=== PATIENT | female | born 1945 | race Two or more races ===

== ENCOUNTER 2022-04-06 19:58 | Inpatient (IN) ==
[2022-04-06 21:10] LABS: Basophils # (auto) 0.01 K/uL (0-0.2); Basophils % (auto) 0.1 %; Eosinophils # (auto) 0.03 K/uL (0-0.5); Eosinophils % (auto) 0.4 %; Hematocrit (blood only) 42.7 % (37-47); Hemoglobin 14.5 g/dL (12.0-16.0); Immature Granulocytes # (auto) 0.02 K/uL (0.00-0.02); Immature Granulocytes % (auto) 0.2 %; Lymphocytes # (auto) 1.14 K/uL (1.2-3.4); Mean Corpuscular Hemoglobin 29.8 pg (25-34); Mean Corpuscular Volume 87.7 fL (80-100); Mean Platelet Volume 9.4 fL (7.4-10.4); Monocytes % (auto) 9.8 %; Neutrophils # (auto) 6.16 K/uL (1.4-6.5); Neutrophils % (auto) 75.5 %; Platelet Count 187 K/uL (130-400); RDW Coefficient of Variation 13.7 % (11.5-14.5); RDW Standard Deviation 44.2 fL (36.4-46.3); Red Blood Count 4.87 M/uL (4.2-5.4); White Blood Count 8.16 K/uL (4.8-10.8)
[2022-04-06 21:22] LABS: Partial Thromboplastin Time 26.7 Seconds (21.0-31.0); Prothrombin Time 10.8 Seconds (9.0-12.0)
[2022-04-06 21:23] LABS: D Dimer 3010 ug/L FEU (0-500)
[2022-04-06 21:36] LABS: Troponin I High Sensitivity 21.3 pg/ml (0-14)
[2022-04-06 21:45] LABS: Albumin Globulin Ratio 1.2 (0.9-2); Albumin Level 3.8 gm/dl (3.4-5.0); BUN Creatinine Ratio 14.6 (10-20); Bilirubin,Total 0.6 mg/dl (0.2-1.0); Calcium 9.1 mg/dl (8.5-10.1); Creatinine Clr Calc Pharmacy 38.5 ml/min; Est GFR (African American) 46.5 ml/min; Est GFR (Non-African American) 40.1 ml/min; Globulin 3.3 gm/dl (2.5-4.0); Total Protein 7.1 gm/dl (6.0-8.3)
[2022-04-06] MEDS ORDERED: OPTIRAY 320 125ml IV ONE (22:20)
[2022-04-06] MEDS ORDERED: Heparin IV Adult Wt-Based Low-Dose WITH Bolus Protocol STA (23:02)
[2022-04-06] MEDS ORDERED: HEPARIN SOD (PORCINE) 1000 UNIT/ML IV ONE ×3 (23:17→23:45)
--- NOTE | 2022-04-06 23:48 | Emergency Department Note ---
Impression & Plan Pulmonary embolism, bilateral, COVID-19, SOB (shortness of breath), Elevated troponin ED Provider Note INFORMANT: Patient and daughter ED PROVIDER(S): Jhon Jean Baptiste MD CHIEF COMPLAINT: Cough PLAN: Disposition: Admitted Condition: Guarded Outpatient prescription management: none Referral: None MEDICAL DECISION MAKING: Patient presented because of cough and COVID exposure. Her symptoms were concerning for COVID. She was isolated. She also had a long flight from [place]. The patient had unremarkable chest x-ray. Her CBC and chemistry panel did not reveal any significant problems. The patient does have a elevated troponin. ECG was nonischemic. The patient underwent CT imaging of the chest as she had a very positive D-dimer. She has bilateral pulmonary emboli. No evidence of pneumonitis or COVID-pneumonia. COVID testing was positive. IV heparin was ordered. Patient and daughter were informed. [facility]. [facility] was evaluated in the ER and admitted for further management. Triage Nursing notes reviewed and agree them. Vital Signs: reviewed and remarkable for mild hypertension and tachycardia borderline. Differential diagnosis: Reactive airway disease, pneumonia, pneumothorax, COPD, CHF, infections, cardiac ischemia, pulmonary embolism, musculoskeletal, gastrointestinal, as well as other pathologies. Diagnostics interpreted by me: ECG: Twelve-lead ECG revealed sinus tachycardia with premature supraventricular complexes and occasional PVCs at 103 bpm. Left axis deviation. Left ventricular hypertrophy with QRS widening present. Anterolateral Q waves present. No prior for comparison. No ST elevation. Cardiac Monitoring: Cardiac monitoring ordered by me: The patient was placed on continuous cardiac monitoring and observed. It revealed a sinus tachycardia at 101 bpm Imaging studies: Chest x-ray. Findings: A chest x-ray was performed and revealed no pneumothorax, effusion, infiltrate, pulmonary edema, free air under the diaphragm, or wide mediastinum. Impression: No acute disease. CT PE study revealed no evidence of COVID pneumonitis or pneumonia however bilateral pulmonary emboli were noted. HPI: The patient is a 76 year old female who presents to the Emergency Room with complaints of cough. This started 2 days ago and is worsening. The patient also notes the following associated symptoms, headache, malaise and shortness of breath. The patient has taken no medication forrelieving factors. Current pain is rated as 3/10. Patient's daughter was diagnosed with COVID this week. Her granddaughter was diagnosed with COVID last week. Patient just traveled in from [place] on a 5-hour flight little over a week ago. Pt denies LOC, chills, diaphoresis, visual changes, neck pain, chest pain, nausea, vomiting, abdominal pain, back pain, diarrhea, urinary symptoms, numbness, weakness, lymphadenopathy, rash, or other complaints. ROS: See above HPI for pertinent positives & negatives. A total of 10 systems reviewed and were otherwise negative. PAST MEDICAL HISTORY:See Below , diabetes PAST SURGICAL HISTORY:See Below, FAMILY HISTORY:See Below SOCIAL HISTORY:See Below, non-smoker HOME MEDICATIONS:See Below ALLERGIES:See Below VITALS:See Below PHYSICAL EXAMINATION: GENERAL: Awake, alert, mildly ill-appearing, in no distress HENT: Normocephalic, atraumatic. Oropharynx unremarkable. EYES: Normal conjunctiva. Sclera non-icteric. NECK: Inspection normal. Non-tender. Supple. No nuchal rigidity. FROM. No masses. RESPIRATORY: Clear to auscultation. No wheezes. No rales. Mildly increased respiratory effort. CARDIAC: Borderline tachycardic rate. Normal rhythm. No murmurs. No rubs. Extremities warm and well perfused. Pulses equal. No JVD. GI: Soft, non-distended. No tenderness to palpation. No rebound or guarding. No masses. RECTAL: Deferred. MUSCULOSKELETAL: Atraumatic. Chest examination reveals no tenderness. The back is symmetrical on inspection without obvious abnormality. There is no CVA tenderness to palpation. No joint edema. LOWER EXTREMITIES: Calves are equal size bilaterally and non-tender. 1+ edema. No discoloration. NEURO: Normal sensorium. No sensory or motor deficits noted. SKIN: No rash or jaundice noted. CRITICAL CARE: I have personally spent greater than 35 minutes of critical care time in the direct management of this patient. This includes bedside care, interpretation of diagnostic studies, and testing, discussion with consultants, patient, and family members, and other required patient management activities. These minutes are in excess of all separately billable procedures. Jhon Jean Baptiste MD Past Med/Surg History Social History Smoking Status: Never smoker Feels Safe at Home: Yes Allergies Allergies Allergy/AdvReac Type Severity Reaction Status Date / Time codeine Allergy Severe SEVERE Verified 04/06/22 20:44 VOMITING Home Meds Home Medications Medication Instructions Recorded Confirmed acetaminophen 500 mg tablet 1,000 mg PO DIRECTED PRN 04/06/22 04/06/22 (Tylenol Extra Strength) atorvastatin 80 mg tablet 80 mg PO DAILY 04/06/22 04/06/22 carvedilol 25 mg tablet 25 mg PO BID 04/06/22 04/06/22 cholecalciferol (vitamin D3) 25 25 mcg PO DAILY 04/06/22 04/06/22 mcg (1,000 unit) capsule (Vitamin D3) dulaglutide 0.75 mg/0.5 mL 0.75 mg SUBCUT WK 04/06/22 04/06/22 subcutaneous pen injector (Trulicity) gabapentin 100 mg capsule 100 mg PO BID 04/06/22 04/06/22 glipizide 5 mg tablet, extended 5 mg PO DAILY 04/06/22 04/06/22 release 24 hr insulin glargine 100 unit/mL 28 unit SUBCUT QPM 04/06/22 04/06/22 subcutaneous solution (Lantus U-100 Insulin) tizanidine 2 mg tablet 2 mg PO HS PRN 04/06/22 04/06/22 Results & Data (ED) Vital Signs Vital Signs - 24 hr 04/06/22 20:00 04/06/22 20:35 04/06/22 20:36 Temperature 36.8 C Temperature Source Temporal Artery Scan Pulse Rate 126 H Pulse Rate [Apical] 100 H Pulse Rate [Exercises] 136 H Pulse Rate [Resting] 104 H Pulse Rate from SpO2 Sensor Pulse Rhythm [Apical] Respiratory Rate 18 21 Respiratory Rate [Exercises] 24 Respiratory Rate [Resting] 22 Respiratory Effort / Characteristics Non-Labored Spontaneous Respiratory Depth Normal Blood Pressure 202/111 H Blood Pressure [Left Arm] 171/105 H Blood Pressure Mean 141 Blood Pressure Mean [Left Arm] 127 Pulse Oximetry 94 94 Pulse Oximetry [Exercises] 94 Pulse Oximetry [Resting] 92 Oxygen Delivery Method Room Air Room Air Room Air Sepsis Recent Fever Within 48 Hours No Sepsis New/Unexplained Change in Mental Status No Sepsis Action Taken by Nursing No Action Required 04/06/22 21:13 04/06/22 23:00 04/07/22 01:00 Temperature Temperature Source Pulse Rate 91 H Pulse Rate [Apical] 97 H 102 H Pulse Rate [Exercises] Pulse Rate [Resting] Pulse Rate from SpO2 Sensor 92 H Pulse Rhythm [Apical] Regular Respiratory Rate 20 24 26 H Respiratory Rate [Exercises] Respiratory Rate [Resting] Respiratory Effort / Characteristics Non-Labored Spontaneous Respiratory Depth Blood Pressure Blood Pressure [Left Arm] 164/110 H 180/138 H Blood Pressure Mean Blood Pressure Mean [Left Arm] 128 152 Pulse Oximetry 95 93 94 Pulse Oximetry [Exercises] Pulse Oximetry [Resting] Oxygen Delivery Method Room Air Room Air Room Air Sepsis Recent Fever Within 48 Hours Sepsis New/Unexplained Change in Mental Status Sepsis Action Taken by Nursing 04/07/22 01:01 Temperature Temperature Source Pulse Rate 98 H Pulse Rate [Apical] Pulse Rate [Exercises] Pulse Rate [Resting] Pulse Rate from SpO2 Sensor Pulse Rhythm [Apical] Respiratory Rate Respiratory Rate [Exercises] Respiratory Rate [Resting] Respiratory Effort / Characteristics Respiratory Depth Blood Pressure 136/81 Blood Pressure [Left Arm] Blood Pressure Mean Blood Pressure Mean [Left Arm] Pulse Oximetry Pulse Oximetry [Exercises] Pulse Oximetry [Resting] Oxygen Delivery Method Sepsis Recent Fever Within 48 Hours Sepsis New/Unexplained Change in Mental Status Sepsis Action Taken by Nursing Laboratory Data Result diagrams: 04/06/22 20:57 04/06/22 20:57 Lab Results 04/06/22 04/06/22 04/06/22 Range/Units 20:39 20:57 20:57 WBC 8.16 (4.8-10.8) K/uL RBC 4.87 (4.2-5.4) M/uL Hgb 14.5 (12.0-16.0) g/dL Hct 42.7 (37-47) % MCV 87.7 (80-100) fL MCH 29.8 (25-34) pg MCHC 34.0 (32-36) g/dL RDW Std Deviation 44.2 (36.4-46.3) fL RDW Coeff of Rena 13.7 (11.5-14.5) % Plt Count 187 (130-400) K/uL MPV 9.4 (7.4-10.4) fL Immature Gran % (Auto) 0.2 % Neut % (Auto) 75.5 % Lymph % (Auto) 14.0 % [place] % (Auto) 9.8 % Eos % (Auto) 0.4 % Baso % (Auto) 0.1 % Neut # (Auto) 6.16 (1.4-6.5) K/uL Lymph # (Auto) 1.14 L (1.2-3.4) K/uL [place] # (Auto) 0.80 H (0.11-0.59) K/uL Eos # (Auto) 0.03 (0-0.5) K/uL Baso # (Auto) 0.01 (0-0.2) K/uL Immature Gran # (Auto) 0.02 (0.00-0.02) K/uL PT 10.8 (9.0-12.0) Seconds INR 1.0 (0.9-1.1) APTT 26.7 (21.0-31.0) Seconds PTT Ratio 1.0 D-Dimer 3010 H* (0-500) ug/L FEU Sodium (136-145) mmol/L Potassium (3.5-5.1) mmol/L Chloride (98-107) mmol/L Carbon Dioxide (21-32) mmol/L Anion Gap (3-11) BUN (6-23) mg/dl Creatinine (0.6-1.2) mg/dl Est Cr Clr Drug Dosing ml/min Est GFR ( Amer) ml/min Est GFR (Non-Af Amer) ml/min BUN/Creatinine Ratio (10-20) Glucose (70-99(Fasting)) mg/dl Calcium (8.5-10.1) mg/dl Total Bilirubin (0.2-1.0) mg/dl AST (13-39) U/L ALT (7-52) U/L Alkaline Phosphatase (34-104) U/L Troponin I High Sens (0-14) pg/ml Total Protein (6.0-8.3) gm/dl Albumin (3.4-5.0) gm/dl Globulin (2.5-4.0) gm/dl Albumin/Globulin Ratio (0.9-2) SARS-CoV-2, RNA, NAAT POSITIVE A* (NEGATIVE) 04/06/22 Range/Units 20:57 WBC (4.8-10.8) K/uL RBC (4.2-5.4) M/uL Hgb (12.0-16.0) g/dL Hct (37-47) % MCV (80-100) fL MCH (25-34) pg MCHC (32-36) g/dL RDW Std Deviation (36.4-46.3) fL RDW Coeff of Rena (11.5-14.5) % Plt Count (130-400) K/uL MPV (7.4-10.4) fL Immature Gran % (Auto) % Neut % (Auto) % Lymph % (Auto) % [place] % (Auto) % Eos % (Auto) % Baso % (Auto) % Neut # (Auto) (1.4-6.5) K/uL Lymph # (Auto) (1.2-3.4) K/uL [place] # (Auto) (0.11-0.59) K/uL Eos # (Auto) (0-0.5) K/uL Baso # (Auto) (0-0.2) K/uL Immature Gran # (Auto) (0.00-0.02) K/uL PT (9.0-12.0) Seconds INR (0.9-1.1) APTT (21.0-31.0) Seconds PTT Ratio D-Dimer (0-500) ug/L FEU Sodium 137 (136-145) mmol/L Potassium 4.0 (3.5-5.1) mmol/L Chloride 100 (98-107) mmol/L Carbon Dioxide 26 (21-32) mmol/L Anion Gap 11 (3-11) BUN 19 (6-23) mg/dl Creatinine 1.30 H (0.6-1.2) mg/dl Est Cr Clr Drug Dosing 38.5 ml/min Est GFR ( Amer) 46.5 ml/min Est GFR (Non-Af Amer) 40.1 ml/min BUN/Creatinine Ratio 14.6 (10-20) Glucose 176 H (70-99(Fasting)) mg/dl Calcium 9.1 (8.5-10.1) mg/dl Total Bilirubin 0.6 (0.2-1.0) mg/dl AST 16 (13-39) U/L ALT 12 (7-52) U/L Alkaline Phosphatase 57 (34-104) U/L Troponin I High Sens 21.3 H (0-14) pg/ml Total Protein 7.1 (6.0-8.3) gm/dl Albumin 3.8 (3.4-5.0) gm/dl Globulin 3.3 (2.5-4.0) gm/dl Albumin/Globulin Ratio 1.2 (0.9-2) SARS-CoV-2, RNA, NAAT (NEGATIVE) Administered Medications Discontinued Medications Ioversol (Optiray 320 125ml) 120 ml IV ONCE ONE Stop: 04/06/22 22:21 Last Admin: 04/06/22 22:20 Dose: 120 ml Documented by: [id number] Metoprolol Tartrate (Metoprolol Tartrate 1 Mg/Ml Vial) 5 mg IV NOW STA Stop: 04/07/22 00:15 Last Admin: 04/07/22 01:01 Dose: 5 mg Documented by: [id number] Discharge Plan Visit Data Chief Complaint: Cough Stated Complaint: HEADACHE, COUGH, NAUSEA ED Provider: Jhon Jean Baptiste Discharge Problem: Pulmonary embolism, bilateral, COVID-19, SOB (shortness of breath), Elevated troponin Forms Stand Alone Forms: [facility] NAV[facility] Prescriptions Prescriptions: No Action atorvastatin 80 mg Tablet 80 mg PO DAILY RF: 0 glipizide 5 mg Tablet Extended Release 24 Hr 5 mg PO DAILY RF: 0 acetaminophen [Tylenol Extra Strength] 500 mg Tablet 1,000 mg PO DIRECTED PRN (Reason: Pain) RF: 0 carvedilol 25 mg Tablet 25 mg PO BID RF: 0 Lantus U-100 Insulin 100 unit/mL Solution 28 unit SUBCUT QPM RF: 0 tizanidine 2 mg Tablet 2 mg PO HS PRN (Reason: MUSCLE SPASMS) RF: 0 gabapentin 100 mg Capsule 100 mg PO BID RF: 0 cholecalciferol (vitamin D3) [Vitamin D3] 25 mcg (1,000 unit) Capsule 25 mcg PO DAILY RF: 0 Trulicity 0.75 mg/0.5 mL Pen Injector 0.75 mg SUBCUT WK RF: 0 Referrals Referrals: PCP,NO [Primary Care Provider] -
[2022-04-07] MEDS ORDERED: METOPROLOL TARTRATE 1 MG/ML VIAL IV STA (00:14)
[2022-04-07] MEDS ORDERED: REMDESIVIR 200 MG in SODIUM CHLORIDE 0.9% 210 ML IV STA (00:14)
[2022-04-07] MEDS: HEPARIN SODIUM/DEXTROSE 25,000 UNITS/500 ML BAG IV SCH (01:05)
--- NOTE | 2022-04-07 03:22 | History and Physical Report ---
CHIEF COMPLAINT: Shortness of breath. HISTORY OF PRESENT ILLNESS: A 76-year-old female with past medical history significant for diabetes, hyperlipidemia, hypertension, presents with shortness of breath and found to have bilateral PE and COVID. The patient is from [place], she traveled by plane 9 days ago to her daughters place here. As per daughter, the patient's granddaughter just recovered from the COVID before the patient came and after the patient came on last Thursday, daughter developed COVID symptoms and the patient developed yesterday some cough, nausea, not feeling well, but today she was getting short of breath, so they came to the hospital and COVID came back positive and CT chest showed bilateral PE. The patient at home she was 89% on room air. Currently, she is in low 90s on room air, resting comfortably and hemodynamically stable. Has some dry cough, occasionally bringing some phlegm. Denies any chest pain, no fever, no chills. Has some sore throat. No diarrhea or constipation. No blood in stool or black stools. Normal bladder movements. No abdominal pain, has some mild headache. No blurred visions, no earache, has some congestion in the nose. Appetite is okay. ALLERGIES: CODEINE. PAST MEDICAL HISTORY: As mentioned above. PAST SURGICAL HISTORY: Had hysterectomy and cholecystectomy. MEDICATIONS: The patient is on Tylenol Extra Strength 1000 mg p.o. p.r.n., atorvastatin 80 mg p.o. daily, Coreg 25 mg p.o. b.i.d., vitamin D 25 mcg p.o. daily, Trulicity 0.75 mg subcutaneous weekly, gabapentin 100 mg p.o. b.i.d., glipizide 5 mg p.o. daily, Lantus 28 units p.m., tizanidine 2 mg p.o. at bedtime p.r.n. FAMILY HISTORY: Father had heart disease. SOCIAL HISTORY: No smoking, no alcohol, no drug use. REVIEW OF SYSTEMS: As per HPI. Rest of review of systems is negative. PHYSICAL EXAMINATION: GENERAL: The patient is of moderate build, not in acute distress. VITAL SIGNS: Temperature 36.8, pulse 91, respiratory rate 24, blood pressure 164/110, oxygen 93% on room air. HEENT: Pupils equal, round, reactive to light. Oral mucosa moist. NECK: No JVD, no neck masses. CARDIOVASCULAR: S1 and S2 heard. Regular rate and rhythm. No murmur, no gallop. RESPIRATORY SYSTEM: Normal AP diameter. No accessory muscle use. No wheezing, no crackles. ABDOMEN: Soft, bowel sounds present, nontender, no distention. CENTRAL NERVOUS SYSTEM: Cranial nerves II through XII are grossly intact, nonfocal. EXTREMITIES: Left lower extremity slightly swollen. No erythema seen. LABORATORY DATA: WBC is 8.1, hemoglobin 14.5, hematocrit 42.7, platelets 187. PT 10.8, INR 1, APTT 26.7. D-dimer 3110. Sodium 137, potassium 4, chloride 100, bicarbonate 26, BUN 19, creatinine 1.3, serum glucose 176, calcium 9.1. Total bilirubin 0.6, AST 16, ALT 12, alkaline phosphatase 57. Troponin I high sensitivity 21.3. SARS-CoV-2 RNA positive. IMAGING DATA: CT of the chest, multiple pulmonary emboli within the right upper, middle, and lower lobe and subsegmental branches. Additional small emboli within several left upper lobe segmental and subsegmental branches, severe mid thoracic compression fracture deformity of generalized kyphosis, cholecystectomy. Chest x-ray: No acute findings. Ekg Sinus tachycardia with supraventricular complexes with occasional PVCs at a rate of 103, left axis deviation. ASSESSMENT AND PLAN: This is a 76-year-old female who presents with shortness of breath, found to have bilateral PE and COVID positive. 1. Shortness of breath mostly secondary to bilateral pulmonary emboli, currently not requiring oxygen. Started on IV heparin. We will monitor in the med tele. Follow wit PCP for duration of anticoagulation. The patient recently traveled on the flight from [place], could also be the cause of the PE. 2. COVID. The patient is vaccinated and boosted. CTA chest, no obvious lesions. The patient is high risk for progression. Started on remdesivir for 3 days. If the patient developed symptoms can start steroids and complete 5-day course of the remdesivir. Closely monitor. 3. Diabetes. Continue home Lantus. Hold glipizide. Place on insulin sliding scale, monitor the blood sugars, follow HbA1c levels. 4. History of hypertension: Continue Coreg. Will monitor the blood pressure. 5. History of hyperlipidemia: Continue statin. 6. Chronic kidney disease, daughter states she it is stage III, creatinine is 1.3. We will follow the repeat labs. 7. Mild troponin elevation. Mostly demand ischemia. Will follow serial CE. 8. Deep venous thrombosis prophylaxis: On IV heparin. DISPOSITION: Closely monitor in the med tele. PT/OT prior to discharge. Social service to help with discharge planning. Job ID: [id number] TIAGO
[2022-04-07] MEDS ORDERED: ONDANSETRON INJ 2 MG/ML 2 ML VIAL IV PRN (06:18)
[2022-04-07] MEDS ORDERED: NITROGLYCERIN SL 0.4 MG/TAB TAB SL PRN (06:18)
[2022-04-07] MEDS ORDERED: tiZANidine HCL 4 MG TABLET PO PRN (06:18)
[2022-04-07] MEDS ORDERED: SODIUM CHLORIDE 0.45 % 1,000 ML IV SCH (06:18)
[2022-04-07] MEDS ORDERED: ACETAMINOPHEN 325 MG TAB PO PRN (06:18)
[2022-04-07] MEDS ORDERED: CARBOHYDRATES FOR HYPOGLYCEMIA PO PRN (06:30)
[2022-04-07] MEDS ORDERED: DEXTROSE 50% 50 ML SYRINGE IV PRN (06:30)
[2022-04-07] MEDS ORDERED: GLUCOSE 10 TABS/TUBE PO PRN (06:30)
[2022-04-07] MEDS ORDERED: GLUCOSE 40% GEL 15 GM TUBE PO PRN (06:30)
[2022-04-07] MEDS ORDERED: GLUCAGON FOR INJ 1 MG VIAL IM PRN (06:30)
--- NOTE | 2022-04-07 07:15 | XRay Report ---
XR chest 1V portable CLINICAL HISTORY: +covid COMPARISON STUDY: No previous studies for comparison. FINDINGS: There is mild elevation of the right hemidiaphragm. No consolidation is identified to sugge st pneumonia. No pneumothorax or pleural effusion is noted. There is mild cardiomegaly. There is no e vidence for pulmonary edema. IMPRESSION: No acute cardiopulmonary findings. ACT 112: Negative or not required by law. Electronically signed by: Jaun Champion M.D. 04/07/2022 7:14 AM
--- NOTE | 2022-04-07 07:34 | CT Scan Report ---
CT angio chest PE protocol CT DOSE: 466.80 mGy.cm HISTORY: 76 years-old Female with +dimer, SOB, +covid. Acute shortness of breath. Elevated d-dimer level. COVID Positive. TECHNIQUE: Multiple CTA images of the chest were obtained after the intravenous administration of 120 ml Optiray. Coronal and sagittal MIPS were obtained from the axial data set and were submitted for review. All measurements were obtained according to NASCET criteria. A dose lowering technique was u tilized adhering to the principles of ALARA. COMPARISON: Chest radiograph 04/06/2022 FINDINGS: CTA: The heart is mildly enlarged. Trace pericardial effusion. Mural fibrofatty changes of the left ventri cular apex. There is moderate coronary artery calcifications. Atherosclerosis of the thoracic aorta w ithout aneurysm or dissection. There is patency of the imaged great vessels. Numerous pulmonary embol i are noted within right-sided lobar, segmental and subsegmental branches. Smaller filling defects ar e noted within subsegmental left upper and lower lobe pulmonary arterial branches. No saddle pulmonar y embolus or evidence of right heart strain. CT CHEST: Multinodular thyroid with an exophytic partially calcified 1.8 cm nodule extending into the upper med iastinum. No pathologically enlarged lymph nodes are identified. There is no pneumothorax, or overt p ulmonary edema. Trace right pleural effusion. There is mild bilateral bronchial wall thickening with subsegmental bibasilar atelectasis. There are no suspicious pulmonary nodules or masses identified. N o definite pulmonary infarction. 3 mm solid nodule of the right lower lobe on image 134 is indetermin ate, however is of low clinical suspicion. Cholecystectomy. Prior ventral abdominal wall herniorrhaphy. Mild nonspecific distal esophageal wall thickening with tiny hiatal hernia. There are several age-indeterminate thoracic compression deformit ies, most pronounced at the T2, T6 and T8 levels. No retropulsion or paravertebral edema identified. Healed chronic right-sided rib fractures. IMPRESSION: 1. Right greater than left bilateral pulmonary emboli. No evidence of right heart strain or pulmonary infarct. 2. Trace right pleural effusion with mild subsegmental bibasilar atelectasis. 3. Age-indeterminate thoracic compression deformities without retropulsion or paravertebral edema, li zana chronic. ACT 112: Negative or not required by law. The above report was generated using voice recognition software. It may contain grammatical, syntax o r spelling errors. Electronically signed by: Chester Swain M.D. 04/07/2022 7:33 AM
[2022-04-07 07:49] LABS: Basophils # (auto) 0.01 K/uL (0-0.2); Basophils % (auto) 0.1 %; Eosinophils # (auto) 0.01 K/uL (0-0.5); Eosinophils % (auto) 0.1 %; Hematocrit (blood only) 39.4 % (37-47); Hemoglobin 13.3 g/dL (12.0-16.0); Immature Granulocytes # (auto) 0.01 K/uL (0.00-0.02); Immature Granulocytes % (auto) 0.1 %; Lymphocytes # (auto) 1.32 K/uL (1.2-3.4); Lymphocytes % (auto) 19.5 %; Mean Corpuscular Hemoglobin 29.5 pg (25-34); Mean Corpuscular Hgb Conc 33.8 g/dL (32-36); Mean Corpuscular Volume 87.4 fL (80-100); Mean Platelet Volume 9.9 fL (7.4-10.4); Monocytes # (auto) 0.95 K/uL (0.11-0.59); Neutrophils # (auto) 4.47 K/uL (1.4-6.5); Neutrophils % (auto) 66.2 %; Platelet Count 185 K/uL (130-400); RDW Coefficient of Variation 13.7 % (11.5-14.5); RDW Standard Deviation 43.9 fL (36.4-46.3); Red Blood Count 4.51 M/uL (4.2-5.4); White Blood Count 6.77 K/uL (4.8-10.8)
[2022-04-07] MEDS: GABAPENTIN 100 MG CAP PO SCH ×3 (07:57→20:51)
[2022-04-07 08:08] LABS: Partial Thromboplastin Ratio 1.9
[2022-04-07 08:14] LABS: Partial Thromboplastin Time 53.4 Seconds (21.0-31.0)
[2022-04-07 08:20] LABS: BUN Creatinine Ratio 13.5 (10-20); Calcium 8.6 mg/dl (8.5-10.1); Creatinine Clr Calc Pharmacy 39.4 ml/min; Est GFR (African American) 48.3 ml/min; Est GFR (Non-African American) 41.6 ml/min; Magnesium 1.3 mg/dl (1.7-2.4); Potassium 3.8 mmol/L (3.5-5.1)
[2022-04-07] MEDS ORDERED: MAGNESIUM SULFATE / D5W 1 GM/100 ML BAG IV ONE (08:35)
[2022-04-07] MEDS: INSULIN ASPART PER UNIT SC SCH ×4 (08:49→20:41)
[2022-04-07 09:10] LABS: Estimated Average Glucose 186 mg/dl; Hemoglobin A1C 8.1 % (4.5-5.6)
[2022-04-07] MEDS: MAGNESIUM OXIDE 400 MG TAB PO SCH ×2 (09:31→20:52)
[2022-04-07] MEDS: ATORVASTATIN 40 MG TAB PO SCH (09:32)
[2022-04-07] MEDS: CHOLECALCIFEROL 1,000 UNITS 25 MCG TAB PO SCH (09:32)
[2022-04-07] MEDS: carvediloL 25 MG TAB PO SCH ×2 (09:36→20:51)
--- NOTE | 2022-04-07 10:47 | Hospitalist Progress Note ---
Date of Service April 07, 2022 Assessment & Plan (1) Pulmonary embolism, bilateral: (2) COVID-19: (3) SOB (shortness of breath): (4) Elevated troponin: Plan: 76-year-old woman from [place] who is visiting family here, with history of diabetes hypertension who presents with shortness of breath. Being managed for bilateral PE and COVID infection Patient remains on room air. Chest x-ray on presentation did not show any acute findings. CT PE showed right greater than left bilateral pulmonary emboli without evidence of right heart strain or pulmonary infarct, trace right pleural effusion with mild subsegmental bibasilar atelectasis, age-indeterminate thoracic compression deformities without retropulsion or paravertebral edema likely chronic. Was positive for COVID, creatinine was 1.3 on presentation [unknown baseline], hemoglobin A1c is 8.3, potassium this morning is 1.3 Troponin high-sensitivity mildly elevated at 21.3 on presentation EKG showed left axis deviation, sinus tachycardia with PVC, some QRS abnormalities. (No previous EKG to compare) COVID infection Bilateral PE Elevated troponin. Currently on remdesivir. Monitor LFT Patient is on room air. We need to step prior to discharge Continue heparin drip for now Plan to transition to NOAC. Will need anticoagulation for 3 to 6 months. Recheck troponin was mildly elevated on presentation. Serial EKG. If trop is elevated or concerning EKG, will get Echo Creatinine was 1.3 on presentation, got some IV fluids overnight. Creatinine is 1.[address] angio presentation reported trace right pleural effusion. Patient currently has trace pedal edema. Will stop IV fluids. Possible CKD since we do not have any old labs to compare Hypomagnesemic. Replete and monitor Continue insulin per protocol to manage diabetes. A1c is 8.1 Hypertension. Continue home carvedilol. Monitor for now. Admission and Anticipated Discharge Date Admission Date: April 07, 2022 Subjective Patient seen and examined. Reported some vomiting this morning. Nausea currently resolved. Denies any headache, dizziness Reports cough occasionally productive. Denies any chest pain, shortness of breath Denies any abdominal pain, diarrhea, constipation Denies any dysuria, frequency, urgency Denies fevers or chills Physical Exam Constitutional: + well hydrated and + obese; no acute distress Eyes: PERRL, conjunctivae normal, anicteric sclerae ENMT: external ear and nose normal, oropharynx normal Respiratory: normal respiratory effort, lungs clear to auscultation Cardiovascular: Rate/Rhythm: regular rate and regular rhythm S1 S2 Gastrointestinal (Abdomen): normal bowel sounds, soft, nontender, no hepatosplenomegaly Musculoskeletal: Trace pedal edema Neurologic: PERRL, EOMI, accommodation nl, no face palsy, no dysarthria Psychiatric: A+Ox3, euthymic affect Results & Data Results & Data ([facility]) Vital Signs (Past 12 Hours) Vital Signs Temp Pulse Pulse Resp BP BP Pulse Ox 04/07/22 06:42 66 04/07/22 06:22 37.3 C 99 H 16 188/94 H 94 04/07/22 05:30 84 21 163/95 H 94 04/07/22 03:00 173/131 H 93 04/07/22 02:00 116 H 30 H 169/113 H 93 04/07/22 01:01 98 H 136/81 04/07/22 01:00 102 H 26 H 180/138 H 94 04/06/22 23:00 91 H 24 93 Laboratory Results Abnormal lab results 04/06/22 04/06/22 04/06/22 Range/Units 20:39 20:57 20:57 Lymph # (Auto) 1.14 L (1.2-3.4) K/uL [place] # (Auto) 0.80 H (0.11-0.59) K/uL APTT (21.0-31.0) Seconds D-Dimer 3010 H* (0-500) ug/L FEU Sodium (136-145) mmol/L Creatinine (0.6-1.2) mg/dl Glucose (70-99(Fasting)) mg/dl POC Glucose (70-99) mg/dl Hemoglobin A1c (4.5-5.6) % Magnesium (1.7-2.4) mg/dl Troponin I High Sens (0-14) pg/ml SARS-CoV-2, RNA, NAAT POSITIVE A* (NEGATIVE) 04/06/22 04/07/22 04/07/22 Range/Units 20:57 07:22 07:22 Lymph # (Auto) (1.2-3.4) K/uL [place] # (Auto) 0.95 H (0.11-0.59) K/uL APTT 53.4 H* (21.0-31.0) Seconds D-Dimer (0-500) ug/L FEU Sodium (136-145) mmol/L Creatinine 1.30 H (0.6-1.2) mg/dl Glucose 176 H (70-99(Fasting)) mg/dl POC Glucose (70-99) mg/dl Hemoglobin A1c (4.5-5.6) % Magnesium (1.7-2.4) mg/dl Troponin I High Sens 21.3 H (0-14) pg/ml SARS-CoV-2, RNA, NAAT (NEGATIVE) 04/07/22 04/07/22 04/07/22 Range/Units 07:22 07:22 08:01 Lymph # (Auto) (1.2-3.4) K/uL [place] # (Auto) (0.11-0.59) K/uL APTT (21.0-31.0) Seconds D-Dimer (0-500) ug/L FEU Sodium 135 L (136-145) mmol/L Creatinine 1.26 H (0.6-1.2) mg/dl Glucose 211 H (70-99(Fasting)) mg/dl POC Glucose 226 H (70-99) mg/dl Hemoglobin A1c 8.1 H (4.5-5.6) % Magnesium 1.3 L (1.7-2.4) mg/dl Troponin I High Sens (0-14) pg/ml SARS-CoV-2, RNA, NAAT (NEGATIVE)
--- NOTE | 2022-04-07 12:59 | Electrocardiogram Report ---
Test Reason : Blood Pressure : / mmHG Vent. Rate : 103 BPM Atrial Rate : 103 BPM P-R Int : 160 ms QRS Dur : 116 ms QT Int : 352 ms P-R-T Axes : 030 -42 095 degrees QTc Int : 461 ms Poor data quality, interpretation may be adversely affected Sinus tachycardia with Premature supraventricular complexes and with occasional Premature ventricular complexes Left axis deviation Left ventricular hypertrophy with QRS widening and repolarization abnormality Anterolateral infarct , age undetermined Abnormal ECG No previous ECGs available Confirmed by Manny Schafer ([id number]) on 04/07/2022 12:59:36 PM Referred By: REFERRED SELF Confirmed By:Shyam Schafer
[2022-04-07] MEDS: BENZONATATE 100 MG CAPSULE PO PRN ×2 (14:30→21:20)
[2022-04-07] MEDS ORDERED: REMDESIVIR 100 MG in SODIUM CHLORIDE 0.9% 230 ML IV SCH (20:00)
[2022-04-07] MEDS: guaiFENesin 600 MG TABCR PO SCH (20:50)
[2022-04-07] MEDS ORDERED: INSULIN GLARGINE SOLOSTAR 100 UNITS/ML 3 ML PEN SQ SCH (21:00)
[2022-04-07] MEDS ORDERED: COUGH DROP (SUGAR FREE) LOZ 24 LOZ/1 BOX BUCCAL STA (21:03)
[2022-04-08] MEDS ORDERED: ZOLPIDEM TARTRATE 5 MG TAB PO PRN (01:27)
[2022-04-08 07:55] LABS: Hematocrit (blood only) 39.1 % (37-47); Hemoglobin 13.2 g/dL (12.0-16.0); Mean Corpuscular Hemoglobin 29.7 pg (25-34); Mean Corpuscular Hgb Conc 33.8 g/dL (32-36); Mean Corpuscular Volume 88.1 fL (80-100); Mean Platelet Volume 9.6 fL (7.4-10.4); Platelet Count 192 K/uL (130-400); RDW Coefficient of Variation 13.7 % (11.5-14.5); RDW Standard Deviation 44.6 fL (36.4-46.3); Red Blood Count 4.44 M/uL (4.2-5.4); White Blood Count 5.23 K/uL (4.8-10.8)
[2022-04-08 07:57] LABS: Partial Thromboplastin Ratio 1.5; Partial Thromboplastin Time 41.9 Seconds (21.0-31.0)
[2022-04-08 08:20] LABS: Albumin Level 3.4 gm/dl (3.4-5.0); Bilirubin Direct 0.1 mg/dl (0-0.2); Bilirubin,Total 0.5 mg/dl (0.2-1.0); Calcium 8.3 mg/dl (8.5-10.1); Creatinine Clr Calc Pharmacy 36.9 ml/min; Est GFR (African American) 44.4 ml/min; Est GFR (Non-African American) 38.3 ml/min; Magnesium 1.8 mg/dl (1.7-2.4); Phosphorus 3.8 mg/dl (2.5-4.9); Potassium 3.8 mmol/L (3.5-5.1); Total Protein 6.3 gm/dl (6.0-8.3)
[2022-04-08] MEDS: INSULIN ASPART PER UNIT SC SCH ×2 (08:27→12:37)
[2022-04-08] MEDS: HEPARIN SODIUM/DEXTROSE 25,000 UNITS/500 ML BAG IV SCH (08:36)
[2022-04-08 08:49] LABS: Troponin I High Sensitivity 24.3 pg/ml (0-14)
[2022-04-08] MEDS: carvediloL 25 MG TAB PO SCH (09:39)
[2022-04-08] MEDS: ATORVASTATIN 40 MG TAB PO SCH (09:39)
[2022-04-08] MEDS: GABAPENTIN 100 MG CAP PO SCH (09:40)
[2022-04-08] MEDS: guaiFENesin 600 MG TABCR PO SCH (09:40)
[2022-04-08] MEDS: CHOLECALCIFEROL 1,000 UNITS 25 MCG TAB PO SCH (09:40)
--- NOTE | 2022-04-08 09:58 | Electrocardiogram Report ---
Test Reason : Blood Pressure : / mmHG Vent. Rate : 114 BPM Atrial Rate : 114 BPM P-R Int : 248 ms QRS Dur : 128 ms QT Int : 322 ms P-R-T Axes : 006 -38 115 degrees QTc Int : 443 ms Sinus tachycardia with 1st degree A-V block Left axis deviation Left bundle branch block Abnormal ECG Confirmed by Manny Schafer ([id number]) on 04/08/2022 9:57:55 AM Referred By: REFERRED SELF Confirmed By:Shyam Schafer
[2022-04-08] MEDS ORDERED: APIXABAN 5 MG TABLET PO SCH (10:30)
--- NOTE | 2022-04-08 11:02 | Discharge Summary ---
Date of Service April 08, 2022 Admission HPI Per Admitting Provider A 76-year-old female with past medical history significant for diabetes, hyperlipidemia, hypertension, presents with shortness of breath and found to have bilateral PE and COVID. The patient is from [place], she traveled by plane 9 days ago to her daughters place here. As per daughter, the patient's granddaughter just recovered from the COVID before the patient came and after the patient came on last Thursday, daughter developed COVID symptoms and the patient developed yesterday some cough, nausea, not feeling well, but today she was getting short of breath, so they came to the hospital and COVID came back positive and CT chest showed bilateral PE. The patient at home she was 89% on room air. Currently, she is in low 90s on room air, resting comfortably and hemodynamically stable. Has some dry cough, occasionally bringing some phlegm. Denies any chest pain, no fever, no chills. Has some sore throat. No diarrhea or constipation. No blood in stool or black stools. Normal bladder movements. No abdominal pain, has some mild headache. No blurred visions, no earache, has some congestion in the nose. Appetite is okay. Admission Exam Per Admitting Provider GENERAL: The patient is of moderate build, not in acute distress. VITAL SIGNS: Temperature 36.8, pulse 91, respiratory rate 24, blood pressure 164/110, oxygen 93% on room air. HEENT: Pupils equal, round, reactive to light. Oral mucosa moist. NECK: No JVD, no neck masses. CARDIOVASCULAR: S1 and S2 heard. Regular rate and rhythm. No murmur, no gallop. RESPIRATORY SYSTEM: Normal AP diameter. No accessory muscle use. No wheezing, no crackles. ABDOMEN: Soft, bowel sounds present, nontender, no distention. CENTRAL NERVOUS SYSTEM: Cranial nerves II through XII are grossly intact, nonfocal. EXTREMITIES: Left lower extremity slightly swollen. No erythema seen. Principal Diagnosis COVID 19 infection Bilateral pulmonary embolism Chronic Kidney Disease stage 3 Discharge Exam Constitutional + well hydrated and + obese; no acute distress Eyes PERRL, conjunctivae normal, anicteric sclerae ENMT external ear and nose normal, oropharynx normal Respiratory normal respiratory effort, lungs clear to auscultation Cardiovascular Rate/Rhythm: regular rate and regular rhythm S1 S2 Gastrointestinal (Abdomen) normal bowel sounds, soft, nontender, no hepatosplenomegaly Musculoskeletal no cyanosis or clubbing, extremities motor strength 5/5 Neurologic PERRL, EOMI, accommodation nl, no face palsy, no dysarthria Psychiatric A+Ox3, euthymic affect Discharge Data Allergies Allergy/AdvReac Type Severity Reaction Status Date / Time codeine Allergy Severe SEVERE Verified 04/06/22 20:44 VOMITING Consultations 04/06/22 23:41 ED Decision to Admit Stat Ordered Studies 04/06/22 21:45 CT angio chest PE protocol Urgent CTA: The heart is mildly enlarged. Trace pericardial effusion. Mural fibrofatty changes of the left ventricular apex. There is moderate coronary artery calcifications. Atherosclerosis of the thoracic aorta without aneurysm or dissection. There is patency of the imaged great vessels. Numerous pulmonary emboli are noted within right-sided lobar, segmental and subsegmental branches. Smaller filling defects are noted within subsegmental left upper and lower lobe pulmonary arterial branches. No saddle pulmonary embolus or evidence of right heart strain. CT CHEST: Multinodular thyroid with an exophytic partially calcified 1.8 cm nodule extending into the upper mediastinum. No pathologically enlarged lymph nodes are identified. There is no pneumothorax, or overt pulmonary edema. Trace right pleural effusion. There is mild bilateral bronchial wall thickening with subsegmental bibasilar atelectasis. There are no suspicious pulmonary nodules or masses identified. No definite pulmonary infarction. 3 mm solid nodule of the right lower lobe on image 134 is indeterminate, however is of low clinical suspicion. Cholecystectomy. Prior ventral abdominal wall herniorrhaphy. Mild nonspecific distal esophageal wall thickening with tiny hiatal hernia. There are several age-indeterminate thoracic compression deformities, most pronounced at the T2, T6 and T8 levels. No retropulsion or paravertebral edema identified. Healed chronic right-sided rib fractures. IMPRESSION: 1. Right greater than left bilateral pulmonary emboli. No evidence of right heart strain or pulmonary infarct. 2. Trace right pleural effusion with mild subsegmental bibasilar atelectasis. 3. Age-indeterminate thoracic compression deformities without retropulsion or paravertebral edema, likely chronic. Hospital Course (1) Pulmonary embolism, bilateral: (2) COVID-19: (3) SOB (shortness of breath): (4) Elevated troponin: 76-year-old woman from [place] who is visiting family here, with history of diabetes hypertension who presents with shortness of breath. Being managed for bilateral PE and COVID infection Patient remains on room air. Chest x-ray on presentation did not show any acute findings. CT PE showed right greater than left bilateral pulmonary emboli without evidence of right heart strain or pulmonary infarct, trace right pleural effusion with mild subsegmental bibasilar atelectasis, age-indeterminate thoracic compression deformities without retropulsion or paravertebral edema likely chronic. Was positive for COVID, creatinine was 1.3 on presentation [unknown baseline], hemoglobin A1c is 8.3 Troponin high-sensitivity mildly elevated at 21.3pg/ml on presentation ->48->24.3 EKG showed left axis deviation, sinus tachycardia with PVC, some QRS abnormalities. (No previous EKG to compare) COVID infection Bilateral PE Elevated troponin. Received remdesivir while inpatient Was started on heparin drip Patient did not require oxygen throughout her stay. Has been on room air 2 Step did not show any oxygen requirement with activity Heparin was changed to eliquis I educated patient and daughter(on the phone) about eliquis Creatinine was 1.3 on presentation. Cr was 1.26->1.35 Patient reported she has history of chronic kidney disease Patient advised to follow up with PCP and a Nephrologsit. Patient visiting from [place] Patient to continue home antidiabetic and antihypertensive regimen Total Time Total Time Spent Total Time Spent (In Minutes): 50 Total Time Includes: Examination of the Patient, Discharge Planning, Medication Reconciliation and Other Discharge Plan Discharge Items Patient Disposition: Home - Self-Care Reason For Visit: Cough and shortness of breath Discharge Diagnosis: COVID 19 infection Bilateral pulmonary embolism Chronic Kidney Disease stage 3 Activity: Resume your previous activity Non-emergency contact: Primary Care Provider Call non-emergency contact if: you have any medication questions Follow-up/Referrals: PCP,NO [Primary Care Provider] - Diet: Carb Consistent or DM2 and Heart Healthy Addtl Attending Provider Instructions: Mrs Gann You came to the hospital complaining of shortness of breath. You were evaluated and found to have COVID 19 infection and blood clots in your lungs. You were started on blood thinners. Your symptoms improved. You were evaluated and noted not to require oxygen at rest. You are being discharged on apixaban (eliquis). This is a blood thinner. You need to take this as prescribed (10mg twice daily for I week, and from Thursday04/15/22 take 5mg twice daily) You will need 3-6 months of anticoagulation/blood thinner. It is very important that you follow up with your Primary Doctor within 1-2 weeks. Please follow up with your Nephrology for management of your Chronic Kidney Disease Please observe home isolation for next week and use your face mask when not alone. It was a pleasure taking care of you Addtl [employer] Senior Specialist Provider Instructions: Home Isolation COVID-19 Instructions The following information about Home Isolation is from the CDC Website: https://www.cdc.gov/coronavirus/2019-ncov/hcp/ssakpumc-pyrjqsa-isbomr.html Stay home except to get medical care People who are mildly ill with COVID-19 are able to isolate at home during their illness. You should restrict activities outside your home, except for getting medical care. Do not go to work, school, or public areas. Avoid using public transportation, ride-sharing, or taxis. Separate yourself from other people and animals in your home People: As much as possible, you should stay in a specific room and away from other people in your home. Also, you should use a separate bathroom, if available. Animals: You should restrict contact with pets and other animals while you are sick with COVID-19, just like you would around other people. Although there have not been reports of pets or other animals becoming sick with COVID-19, it is still recommended that people sick with COVID-19 limit contact with animals until more information is known about the virus. When possible, have another member of your household care for your animals while you are sick. If you are sick with COVID-19, avoid contact with your pet, including petting, snuggling, being kissed or licked, and sharing food. If you must care for your pet or be around animals while you are sick, wash your hands before and after you interact with pets and wear a face mask. Call ahead before visiting your doctor If you have a medical appointment, call the healthcare provider and tell them that you have or may have COVID-19. This will help the healthcare providers office take steps to keep other people from getting infected or exposed. Wear a face mask You should wear a face mask when you are around other people (e.g., sharing a room or vehicle) or pets and before you enter a healthcare providers office. If you are not able to wear a face mask (for example, because it causes trouble breathing), then people who live with you should not stay in the same room with you, or they should wear a face mask if they enter your room. Cover your coughs and sneezes Cover your mouth and nose with a tissue when you cough or sneeze. Throw used tissues in a lined trash can. Immediately wash your hands with soap and water for at least 20 seconds or, if soap and water are not available, clean your hands with an alcohol-based hand insights strategist that contains at least 60% alcohol. Clean your hands often Wash your hands often with soap and water for at least 20 seconds, especially after blowing your nose, coughing, or sneezing; going to the bathroom; and before eating or preparing food. If soap and water are not readily available, use an alcohol-based hand insights strategist with at least 60% alcohol, covering all surfaces of your hands and rubbing them together until they feel dry. Soap and water are the best option if hands are visibly dirty. Avoid touching your eyes, nose, and mouth with unwashed hands. Avoid sharing personal household items You should not share dishes, drinking glasses, cups, eating utensils, towels, or bedding with other people or pets in your home. After using these items, they should be washed thoroughly with soap and water. Clean all high-touch surfaces everyday High touch surfaces include counters, tabletops, doorknobs, bathroom fixtures, toilets, phones, keyboards, tablets, and bedside tables. Also, clean any surfaces that may have blood, stool, or body fluids on them. Use a household cleaning spray or wipe, according to the label instructions. Labels contain instructions for safe and effective use of the cleaning product including precautions you should take when applying the product, such as wearing gloves and making sure you have good ventilation during use of the product. Monitor your symptoms Seek prompt medical attention if your illness is worsening (e.g., difficulty breathing).Beforeseeking care, call your healthcare provider and tell them that you have, or are being evaluated for, COVID-19. Put on a face mask before you enter the facility. These steps will help the healthcare providers office to keep other people in the office or waiting room from getting infected or exposed. Ask your healthcare provider to call the local or state health department. Persons who are placed under active monitoring or facilitated self- monitoring should follow instructions provided by their local health department or occupational health professionals, as appropriate. When working with your local health department check their available hours. If you have a medical emergency and need to call 911, notify the dispatch personnel that you have, or are being evaluated for COVID-19. If possible, put on a face mask before emergency medical services arrive. Discontinuing home isolation Patients with confirmed COVID-19 should remain under home isolation precautions until the risk of secondary transmission to others is thought to be low. The decision to discontinue home isolation precautions should be made on a [id number] basis, in consultation with healthcare providers and [facility] and [facility] health departments. Pending Studies at Discharge: No Stand-Alone Forms: [facility], Smoking Cessation Medications and DC Order Prescriptions: New Eliquis 5 mg Tablet See Rx Instructions .ROUTE .COMPLEX Qty: 72 RF: 0 benzonatate 100 mg Capsule 100 mg PO TID PRN (Reason: cough) Qty: 30 RF: 0 Continued atorvastatin 80 mg Tablet 80 mg PO DAILY RF: 0 glipizide 5 mg Tablet Extended Release 24 Hr 5 mg PO DAILY RF: 0 acetaminophen [Tylenol Extra Strength] 500 mg Tablet 1,000 mg PO DIRECTED PRN (Reason: Pain) RF: 0 carvedilol 25 mg Tablet 25 mg PO BID RF: 0 Lantus U-100 Insulin 100 unit/mL Solution 28 unit SUBCUT QPM RF: 0 tizanidine 2 mg Tablet 2 mg PO HS PRN (Reason: MUSCLE SPASMS) RF: 0 gabapentin 100 mg Capsule 100 mg PO BID RF: 0 cholecalciferol (vitamin D3) [Vitamin D3] 25 mcg (1,000 unit) Capsule 25 mcg PO DAILY RF: 0 Trulicity 0.75 mg/0.5 mL Pen Injector 0.75 mg SUBCUT WK RF: 0 Discharge Orders: Discharge Order (Routine); Ordered 04/08/22 Ordered By: Indira Fritz/Other Patient Handouts: Apixaban Oral Tablet 5 mg, Managing Type 2 Diabetes, Special Foot Care for Diabetes Admission Data Admit Date/Time: 04/07/22 00:14 Attending Provider: Indira Carey I. Admit Provider: Russel De Leon Primary Care Provider: PCP,NO Other Providers: Russel De Leon Other Interventions: Discharge Summary Assessment (RN) Last Done: 04/08/22 11:56
== END 2022-04-08 13:19 | disposition home or self-care (01) | DRG 177 ==
LOC: ED 19:58 → 2N 04-07 00:14